=== PATIENT | female | born 1965 | race Caucasian/White ===

== ENCOUNTER 2018-06-17 00:12 | Emergency (ER) | payer MEDICAID ==
--- NOTE | 2018-06-17 00:17 | Emergency Department Record ---
History of Present Illness - General Chief Complaint: Back Pain/Injury Stated Complaint: BACK INJURY Time Seen by Provider: 06/17/18 00:15 Source: Patient Mode of Arrival: Ambulatory Limitations: No limitations - History of Present Illness Initial Comments: 52 yo female presents to ED for evaluation of low-back pain symptoms intermittently for the past 2 weeks. 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 Patient reports that her back "locks up" and "spasms" intermittently, reports Ibuprofen has not been helping much. Patient denies fevers, flank pain, dysuria, nausea or vomiting symptoms. Patient denies urinary retention, groin numbness, or lower extremity weakness symptoms. MD Complaint: Back pain Onset/Timin -: Week(s) Similar Symptoms Previously: No Place: Work Severity: Moderate Quality: Other ("spasms") Consistency: Intermittent Improves With: Sitting upright Worsens With: Deep breaths/cough, Movement Associated Symptoms: Denies other symptoms - Related Data Home Medications Medication Instructions Recorded Confirmed Last Taken No Home Med [NO HOME MEDS] 06/17/18 06/17/18 Unknown Allergies Allergy/AdvReac Type Severity Reaction Status Date / Time No Known Drug Allergies Allergy Verified 06/17/18 00:23 Review of Systems Constitutional: Denies: Chills, Fever, Malaise, Night sweats Eyes: Denies: Eye discharge ENT: Denies: Congestion, Ear pain, Epistaxis Respiratory: Denies: Cough, Dyspnea Cardiovascular: Denies: Chest pain, Dyspnea on exertion Endocrine: Denies: Fatigue, Heat or cold intolerance Gastrointestinal: Denies: Abdominal pain, Nausea, Vomiting Genitourinary: Denies: Incontinence, Retention Musculoskeletal: Reports: Back pain. Denies: Arthralgia Skin: Denies: Bruising, Change in color Neurological: Denies: Abnormal gait, Confusion, Headache, Seizure Psychiatric: Denies: Anxiety Hematological/Lymphatic: Denies: Anemia, Blood Clots Physical Exam - General General Appearance: Alert, Oriented x3, Cooperative, Mild distress, Other ( Smiling, well appearing on examination) Limitations: No limitations - Head Head exam: Atraumatic, Normocephalic, Normal inspection Head exam detail: negative: Abrasion, Contusion, Newby's sign, General tenderness, Hematoma, Laceration - Eye Eye exam: Normal appearance. negative: Conjunctival injection, Periorbital swelling, Periorbital tenderness, Scleral icterus - ENT Ear exam: negative: Auricular hematoma, Auricular trauma Nasal Exam: negative: Active bleeding, Discharge, Dried blood, Foreign body Mouth exam: negative: Drooling, Laceration, Muffled voice, Tongue elevation - Neck Neck exam: Normal inspection. negative: Meningismus, Tenderness - Respiratory Respiratory exam: Normal lung sounds bilaterally. negative: Rales, Respiratory distress, Rhonchi, Stridor - Cardiovascular Cardiovascular Exam: Regular rate, Normal rhythm, Normal heart sounds - GI/Abdominal GI/Abdominal exam: Soft. negative: Rebound, Rigid, Tenderness - Rectal Rectal exam: Deferred - exam: Deferred - Extremities Extremities exam: Normal inspection. negative: Pedal edema, Tenderness - Back Back exam: Reports: Paraspinal tenderness. Denies: CVA tenderness (R), CVA tenderness (L) - Neurological Neurological exam: Alert, Normal gait (Bilateral lower lumbar tenderness on examination), Oriented X3 - Psychiatric Psychiatric exam: Normal affect, Normal mood - Skin Skin exam: Normal color. negative: Abrasion Type of lesion: negative: abrasion Course - Reevaluation(s) Reevaluation #1: 06/17/18 00:27 Symptoms appear c/w lumbar spasms resulting from probable strain Will prescribe Valium 5 mg and Motrin 800 mg as directed. Radiographs are unlikely to be of benefit as the patient did not suffer traumatic injury. Patient is in agreement with the plan of care as discussed. Disposition Disposition: Discharge Clinical Impression: Low back strain Qualifiers: Encounter type: initial encounter Qualified Code(s): S39.012A - Strain of muscle, fascia and tendon of lower back, initial encounter Disposition: Home, Self-Care Condition: (2) Stable Instructions: Low Back Strain (ED) Additional Instructions: Return to ED if your symptoms worsen or if you have any concerns. Motrin 800 mg and Valium as directed. Follow-up with your family doctor in 3-5 days as directed. Forms: Patient Portal Access Time of Disposition: 00:17 Quality - Quality Measures Quality Measures: N/A - Blood Pressure Screening Does Patient Have Any of the Following: No Blood Pressure Classification: Hypertensive Reading Systolic Measurement: 180 Diastolic Measurement: 91 Screening for High Blood Pressure: < First Hypertensive BP, F/U Documented > [ G8950] First Hypertensive Follow-up Interventions: Referral to alternative/primary care provider.
[2018-06-17] MEDS ORDERED: DIAZEPAM 5 MG TABLET PO ONE (00:18)
== END 2018-06-17 00:20 | disposition home or self-care (01) ==
LOC: ER 00:12
DX: S39.012A Strain of muscle, fascia and tendon of lower back, initial encounter (principal); X50.0XXA Overexertion from strenuous movement or load, initial encounter; Y93.E2 Activity, laundry
CPT/HCPCS: 99282

== ENCOUNTER 2019-03-08 18:06 | Emergency (ER) | payer MEDICAID ==
[2019-03-08] MEDS ORDERED: ASPIRIN 81 MG CHEWABLE TABLET PO ONE (18:42)
[2019-03-08] MEDS ORDERED: NITROGLYCERIN 0.4MG SL TABLET #25 BTL SL ONE (18:42)
[2019-03-08 18:56] LABS: ABSOLUTE NEUTROPHIL COUNT 4.87; BASO % 0.5 % (0-6); EOS % 1.9 % (0-6); GRAN % 65.1 % (47-80); HEMATOCRIT 39.6 % (35.0-47.0); HEMOGLOBIN 12.4 gm/dl (11.6-16.0); MEAN CORPUSCULAR HEMOGLOBIN 27.9 pg (27-33); MEAN CORPUSCULAR HGB CONC 31.3 g/dl (32-36); MEAN PLATELET VOLUME 10.8 fl (7.4-10.4); MONO % 7.5 % (0-9); PLATELET COUNT 287 K/uL (130-400); RED BLOOD COUNT 4.45 M/uL (3.80-5.40); RED CELL DISTRIBUTION WIDTH 14.4 % (11.5-14.5); WHITE BLOOD COUNT W/O DIFF 7.5 K/uL (4.2-12.2)
--- NOTE | 2019-03-08 18:58 | Emergency Department Record ---
History of Present Illness - General Chief Complaint: Chest Pain Stated Complaint: R SIDE CHEST PAIN/ BP 160 OVER 120 Time Seen by Provider: 03/08/19 18:36 Source: Patient Mode of Arrival: Ambulatory Limitations: No limitations - History of Present Illness Initial Comments: pt has r cp that is intermittent. she was recently found to have htn and was st arted on lisinopril. she has no n//v or sob. she also has a mcgovern.movement makes the pain worse MD Complaint: Chest pain Onset/Timin -: Hour(s) Pain Location: Right chest Pain Radiation: None Severity scale (1-10): 4 Quality: Sharp Consistency: Intermittent Improves With: Nothing Worsens With: Nothing Context: New medications - Related Data Home Medications Medication Instructions Recorded Confirmed Last Taken Lisinopril 20 mg PO DAILY 03/08/19 03/08/19 03/08/19 Previous Rx's Medication Instructions Recorded Clonidine HCl 0.1 mg PO DAILY #7 tablet 03/09/19 Allergies Allergy/AdvReac Type Severity Reaction Status Date / Time No Known Drug Allergies Allergy Verified 03/08/19 18:17 Travel Screening - Travel/Exposure Within Last 30 Days Have you traveled within the last 30 days?: No - Travel/Exposure Within Last Year Have you traveled outside the [place] in the last year?: No - Additonal Travel Details Have you been exposed to anyone with a communicable illness?: No - Travel Symptoms Symptom Screening: None Review of Systems Reviewed: No additional complaints except as noted below Constitutional: Reports: As per HPI. Denies: Chills, Fever, Malaise, Night sweats, Weakness, Weight change Eyes: Reports: As per HPI. Denies: Eye discharge, Eye pain, Photophobia, Vision change ENT: Reports: As per HPI. Denies: Congestion, Dental pain, Ear pain, Epistaxis, Hearing loss, Throat pain Respiratory: Reports: As per HPI. Denies: Cough, Dyspnea, Hemoptysis, Stridor, Wheezes Cardiovascular: Reports: As per HPI, Chest pain. Denies: Arrhythmia, Dyspnea on exertion, Edema, Murmurs, Orthopnea, Palpitations, Paroxysmal nocturnal dyspnea, Rheumatic Fever, Syncope Endocrine: Reports: As per HPI. Denies: Fatigue, Heat or cold intolerance, Polydipsia, Polyuria Gastrointestinal: Reports: As per HPI. Denies: Abdominal pain, Constipation, Diarrhea, Hematemesis, Hematochezia, Melena, Nausea, Vomiting Genitourinary: Reports: As per HPI. Denies: Abnormal menses, Discharge, Dyspareunia, Dysuria, Frequency, Hematuria, Incontinence, Retention, Urgency Musculoskeletal: Reports: As per HPI. Denies: Arthralgia, Back pain, Gout, Joint swelling, Myalgia, Neck pain Skin: Reports: As per HPI. Denies: Bruising, Change in color, Change in hair/nails, Lesions, Pruritus, Rash Neurological: Reports: As per HPI. Denies: Abnormal gait, Confusion, Headache, Numbness, Paresthesias, Seizure, Tingling, Tremors, Vertigo, Weakness Psychiatric: Reports: As per HPI. Denies: Anxiety, Auditory hallucinations, Depression, Homicidal thoughts, Suicidal thoughts, Visual hallucinations Hematological/Lymphatic: Reports: As per HPI. Denies: Anemia, Blood Clots, Easy bleeding, Easy bruising, Swollen glands Past Medical History - SOCIAL HISTORY Smoking Status: Never smoker Alcohol Use: Occasional Drug Use: None - RESPIRATORY Hx Respiratory Disorders: No - CARDIOVASCULAR Hx Cardio Disorders: Yes Hx Hypertension: Yes - NEURO Hx Neuro Disorders: No - GI Hx GI Disorders: No - Hx Genitourinary Disorders: No - ENDOCRINE Hx Endocrine Disorders: No - MUSCULOSKELETAL Hx Musculoskeletal Disorders: Yes - PSYCH Hx Psych Problems: Yes Hx Anxiety: Yes Hx Depression: Yes - HEMATOLOGY/ONCOLOGY Hx Hematology/Oncology Disorders: No Family Medical History Any Significant Family History?: No Physical Exam - General General Appearance: Alert, Oriented x3, Cooperative, Mild distress - Head Head exam: Normal inspection - Eye Eye exam: Normal appearance, PERRL, EOMI Pupils: Normal accommodation - ENT ENT exam: Normal exam, Mucous membranes moist, Normal external ear exam, Normal orophraynx Ear exam: Normal external inspection. negative: External canal tenderness Nasal Exam: Normal inspection. negative: Discharge, Sinus tenderness Mouth exam: Normal external inspection, Tongue normal Teeth exam: Normal inspection. negative: Dental caries Throat exam: Normal inspection. negative: Tonsillar erythema, Tonsillar exudate - Neck Neck exam: Normal inspection, Full ROM. negative: Tenderness - Respiratory Respiratory exam: Normal lung sounds bilaterally. negative: Respiratory distress - Cardiovascular Cardiovascular Exam: Regular rate, Normal rhythm, Normal heart sounds - GI/Abdominal GI/Abdominal exam: Soft, Normal bowel sounds. negative: Tenderness - Rectal Rectal exam: Deferred - exam: Deferred - Extremities Extremities exam: Normal inspection, Full ROM, Normal capillary refill. negative: Tenderness - Back Back exam: Reports: Normal inspection, Full ROM. Denies: Muscle spasm, Rash noted, Tenderness - Neurological Neurological exam: Alert, Normal gait, Oriented X3, Reflexes normal - Psychiatric Psychiatric exam: Normal affect, Normal mood - Skin Skin exam: Dry, Intact, Normal color, Warm Course Vital Signs 03/08/19 18:20 Temperature 98.4 F Pulse Rate 73 Respiratory 16 Rate Blood Pressure 226/115 Pulse Ox 97 - Reevaluation(s) Reevaluation #1: 03/09/19 00:44 pt feels better. 2nd troponin neg. bp down to 160s Medical Decision Making - Lab Data Result diagrams: 03/08/19 18:25 03/08/19 18:25 Disposition Disposition: Discharge Clinical Impression: HTN (hypertension) Qualifiers: Hypertension type: essential hypertension Qualified Code(s): I10 - Essential (primary) hypertension Disposition: Home, Self-Care Condition: (1) Good Instructions: Hypertension (ED), Heart Healthy Diet (ED), Low-Sodium Diet (ED) Additional Instructions: follow up with family doctor today. recheck blood pressure. return sooner if worse. no caffeine. decrease salt Prescriptions: Clonidine HCl 0.1 mg PO DAILY #7 tablet Forms: Patient Portal Access Quality - Quality Measures Quality Measures: N/A - Blood Pressure Screening Does Patient Have Any of the Following: No Blood Pressure Classification: Hypertensive Reading Systolic Measurement: 226 Diastolic Measurement: 115 Screening for High Blood Pressure: < First Hypertensive BP, F/U Documented > [G8950] First Hypertensive Follow-up Interventions: Follow-up with rescreen GT 1 day and LT 4 weeks.
[2019-03-08 19:10] LABS: BLOOD UREA NITROGEN 18 mg/dL (6-20); CREATININE 0.5 mg/dL (0.5-0.9); EST GLOMERULAR FILTRATION RATE > 60 mL/min
[2019-03-08 19:11] LABS: TOTAL PROTEIN 7.3 g/dL (6.6-8.7)
[2019-03-08 19:13] LABS: GLUCOSE,RANDOM 91 mg/dL (74-109)
[2019-03-08 19:15] LABS: ALT/SGPT 15 U/L (<33); AST/SGOT 19 U/L (10.0-35.0)
[2019-03-08 19:16] LABS: ALB/GLOB RATIO 1.4 (1.1-1.8); ALBUMIN 4.2 g/dL (4.0-5.0); ALKALINE PHOSPHATASE 84 U/L (35-104); CREATINE PHOSPHOKINASE 173 U/L (26-192)
[2019-03-08 19:18] LABS: CKMB 3.8 ng/mL (<3.77)
--- NOTE | 2019-03-08 20:29 | RADIOLOGY REPORT ---
EXAMINATION: Two View Chest Radiographs EXAM DATE: 03/08/2019 8:15 PM TECHNIQUE: Frontal and lateral views INDICATION: cp COMPARISON: None ENCOUNTER: Not applicable FINDINGS: Cardiomediastinal structures unremarkable. No pulmonary consolidation or infiltration. No pneumothora x or pleural effusion. Mild degenerative change thoracic spine. IMPRESSION: No acute abnormality Dictated by: Matt Tirado MD on 03/08/2019 8:26 PM. .
[2019-03-08] MEDS ORDERED: KETOROLAC 30 MG/ML VIAL IVP ONE (20:39)
[2019-03-08] MEDS ORDERED: CLONIDINE HCL 0.1 MG TABLET PO ONE (23:03)
[2019-03-09] MEDS ORDERED: CLONIDINE HCL 0.1 MG TABLET PO ONE (00:08)
== END 2019-03-09 01:02 | disposition home or self-care (01) ==
LOC: ER 18:06
DX: I10 Essential (primary) hypertension (principal); R07.89 Other chest pain
CPT/HCPCS: 71046; 80053; 82550; 82553; 83880; 84484; 85025; 85379; 93005; 93010; 96374; 99284; J1885